=== PATIENT | male | born 1985 | race Two or more races ===

== ENCOUNTER 2024-07-31 10:19 | Emergency (ER) | payer MEDICAID, OTHER ==
[~2024-07-31] VITALS: Ht 157.5 cm; Wt 84.1 kg
[2024-07-31 10:25] VITALS: PULSE 97; RESP 28; O2SAT 100
[2024-07-31] MEDS: METOCLOPRAMIDE HCL 5MG/ml INJ 2ml VIAL IV ONE (10:50)
[2024-07-31] MEDS: MORPHINE SULFATE 4 MG/ML SYR/VIAL IV ONE (10:51)
--- NOTE | 2024-07-31 11:20 | DVH ---
CT ABDOMEN AND PELVIS WITHOUT CONTRAST CLINICAL HISTORY: ruq epigastric pain, etoh use TECHNIQUE: Multiple contiguous axial images of the abdomen and pelvis without intravenous contrast. The images were reformatted degenerate coronal and sagittal reconstructions. All CT scans at this medical facility are performed using dose modulation techniques as appropriate t o a performed exam including the following:Automated exposure control was utilized; adjustment of the MA and/or KV according to patient size; and use of iterative reconstruction technique. Radiation Dose Information: CT Dose: CTDI volume is 14.52 mGy. Dose-length product is 809.6 mGy*cm Comparison: None FINDINGS: Evaluation of the abdomen and pelvis is limited without intravenous contrast. There is a punctate 2 mm calculus in the upper pole of the left kidney. There is no right renal calcu sherly. There is no hydronephrosis. There is no evidence of a ureteral calculus or hydroureter. The liver, gallbladder, pancreas, adrenal glands, and spleen appear within normal limits. There is no gross evidence of abdominal lymphadenopathy. There is no free fluid or free air. The stomach grossly appears unremarkable. The small and large bowel loops demonstrate normal caliber . Moderate amount of stool in the colon. The abdominal aorta and IVC appear within normal limits. The bladder appears unremarkable for the degree of distention. Pelvic organ appears within normal desir its. There is no gross evidence of a pelvic mass. There is no free fluid collection. There is a smal l fat containing right inguinal hernia. Lung bases are clear. There is no acute osseous abnormality. IMPRESSION: 1. There is no acute process in the abdomen and pelvis. 2. Punctate 2 mm nonobstructive left upper pole renal calculus. 3. Moderate amount of stool in the colon. 4. Small fat containing right inguinal hernia. HS:Y
[2024-07-31] MEDS: KETOROLAC TROMETH 30 MG/ML 1ML VIAL IV ONE (11:43)
[2024-07-31] MEDS: SODIUM CHLORIDE 0.9% 1,000 ML IV ONE (11:51)
[2024-07-31 11:52] LABS: Alanine Aminotransferase 35 U/L (7-40); Albumin 4.6 g/dL (3.2-4.8); Anion Gap 9 (5-15); Aspartate Aminotransferase 21 U/L (13-40); BUN/Creatinine Ratio 8.7 (10.0-20.0); Carbon Dioxide 20 mmol/L (20-31); Potassium 4.3 mmol/L (3.5-5.1); Sodium 138 mmol/L (136-145); Total Protein 7.3 g/dL (5.7-8.2)
[2024-07-31 11:53] LABS: Alkaline Phosphatase 126 U/L (46-116); Bilirubin, Total 0.3 mg/dL (0.2-1.0); Blood Urea Nitrogen 8 mg/dL (9-23); Calcium 10.5 mg/dL (8.7-10.4); Chloride 109 mmol/L (98-107); Glucose 139 mg/dL (74-106); Lipase 90 U/L (12-53)
[2024-07-31 11:58] LABS: Basophils # (auto) 0.1 10 ^3/uL (0-0.2); Basophils % (auto) 0.5 % (0.0-2.0); Eosinophils # (auto) 0.3 10 ^3/uL (0-0.8); Eosinophils % (auto) 2.1 % (0.0-7.0); Hematocrit 48.2 % (41.0-53.0); Lymphocytes # (auto) 3.1 10 ^3/uL (0.4-5.4); Lymphocytes % (auto) 23.3 % (10.0-50.0); Mean Corpuscular Hemoglobin 30.5 pg (28.0-32.0); Mean Corpuscular Hgb Conc. 33.2 g/dL (32.0-36.0); Mean Corpuscular Volume 91.9 fL (80.0-100.0); Monocytes # (auto) 0.7 10 ^3/uL (0-1.3); Monocytes % (auto) 5.6 % (0.0-12.0); Neutrophils # (auto) 9.2 10 ^3/uL (1.6-8.6); Neutrophils % (auto) 68.5 % (37.0-80.0); Platelet Count (auto) 223 10^3/uL (140-450); Red Blood Cells 5.25 10^6/uL (4.5-5.90); White Blood Cell 13.4 10^3/uL (4.4-10.8)
[2024-07-31] MEDS ORDERED: IBU600T PO ×2 (12:27→12:28)
[2024-07-31] MEDS ORDERED: TAMS-35 PO (12:28)
--- NOTE | 2024-07-31 12:29 | ED.PDOC ---
GI ASSESSMENT HPI Comments right upper abdomen and flank pain Chief Complaint: Abdominal Pain Comments pt has a history of anxiety, liver disease, has been going through family str ess, but started to have right sided upper abdominal and flank pain yesterday. no injuries, no history of same. no hematuria Time Seen by MD: 10:36 Primary Care Provider: DR SAUD HARPER Reviewed Notes: Nurses Notes, Coding Manager Notes Allergies: Coded Allergies: NO KNOWN ALLERGIES (Unverified , 07/31/24) Information Source: Patient, Emergency Med Personnel Mode of Arrival: EMS Duration: Since onset Quality: Colicky Vomitus: None Severity: Moderate Recent: None Recent Hx of: None Pain Location: None Modifying Factors: Nothing Associated sign and symptoms: None Past Medical History Past Medical History (Other): liver disease, anxiety Surgical History: Denies all surgeries Family History Family History: Reviewed,noncontributory to illness, No family hx of Cancer, No family hx of DM, No family hx of Heart frances, No family hx of HTN, No family hx ofKidney frances, No family hx of Liver frances, No family hx of Lung frances, No family hx of Stroke Social History Smoker: Non-Smoker Alcohol: Heavy Drugs: Denies Drug Use Constitutional: reports: others (anxious); denies: chills, diaphoresis, fatigue, fever, malaise, sweats, weakness EENTM: denies: blurred vision, double vision, ear bleeding, ear discharge, ear drainage, ear pain, ear ringing, eye pain, eye redness, hearing loss, mouth pain, mouth swelling, nasal discharge, nose bleeding, nose congestion, nose pain, photophobia, tearing, throat pain, throat swelling, voice changes, others Respiratory: denies: cough, hemoptysis, orthopnea, SOB at rest, shortness of breath, SOB with excertion, stridor, wheezing, others Cardiovascular: denies: chest pain, dizzy spells, diaphoresis, Dyspnea on exertion, edema, irregular heart beat, left arm pain, lightheadedness, palpitations, PND, syncope, others Gastrointestinal: denies: abdomen distended, abdominal pain, blood streaked bowels, constipated, diarrhea, dysphagia, difficulty swallowing, hematemesis, melena, nausea, poor appetite, poor fluid intake, rectal bleeding, rectal pain, vomiting, others Genitourinary: denies: burning, dysuria, flank pain, frequency, hematuria, incontinence, penile discharge, penile sore, pain, testicle pain, testicle swelling, urgency, others Neurological: denies: dizziness, fainting, headache, left sided numbness, left sided weakness, numbness, paresthesia, pre-existing deficit, right sided numbness, right sided weakness, seizure, speech problems, tingling, tremors, wea kness, others Musculoskeletal: denies: back pain, gout, joint pain, joint swelling, muscle pain, muscle stiffness, neck pain, others Integumetry: denies: bruises, change in color, change in hair/nails, dryness, l aceration, lesions, lumps, rash, wounds, others Allergic/Immunocompromised: denies: Difficulty Healing, Frequent Infections, Hives, Itching, others Hematologic/Lymphatic: denies: anemia, blood clots, easy bleeding, easy bruising, swollen glands, others Endocrine: denies: excessive hunger, excessive sweating, excessive thirst, excessive urination, flushing, intolerance to cold, intolerance to heat, unexplained weight gain, unexplained weight loss, others Psychiatric: denies: anxiety, bipolar disorder, depression, hopeless, panic disorder, schizophrenia, sleepless, suicidal, others All Other Systems: Reviewed and Negative Physical Exam General Appearance: No Apparent Distress, Normal, Other (anxious) HEENT: Normal ENT Inspection, Pharynx Normal, TMs Normal Neck: Full Range of Motion, Non-Tender, Normal, Normal Inspection Respiratory: Chest Non-Tender, Lungs Clear, No Accessory Muscle Use, No Respiratory Distress, Normal Breath Sounds Cardiovascular: No Edema, No JVD, No Murmur, No Gallop, Normal Peripheral Pulses, Regular Rate/Rhythm Breast Exam: Deferred Gastrointestinal: No Organomegaly, Non Tender, No Pulsatile Mass, Normal Bowel Sounds, Soft Genitalia: Deferred Pelvic: Deferred Rectal: Deferred Extremities: No calf tenderness, Normal capillary refill, Normal inspection, Normal range of motion, Non-tender, No pedal edema Musculoskeletal : Apperance: Normal Neurologic: Alert, child & adolescent psychiatrist II-XII nml as Tested, No Motor Deficits, Normal Affect, Normal Mood, No Sensory Deficits Cerebellar Function: Normal Reflexes: Normal Skin: Dry, Normal Color, Warm Lymphatic: No Adenopathy Was a procedure done? Was a procedure done?: No GI differential Dx Differential Diagnosis: Appendicitis, Aortic dissection, Bowel Obstruction, Cholangitis, Cholecystitis, Constipation, Diverticular disease, Gastritis/PUD, Gastroenteritis, GI hemorrhage, Hernia, Hepatitis, Inflammatory BD, Ischemic Bowel, Pancreatitis, Urinary Obstruction, UTI, Urolithiasis, Dehydration, Diabetes/ DKA, Electrolyte Imbalance, Food Poisoning, Bacterial, Parasitic, Viral, Hypovolemia, Impaction, Malnutrition, Renal Failure, Ischemic Bowel, M ass, Anemia, Stress Ulcer, Kidney Stone X-Ray, Labs, Meds, VS Vital Signs Date Time Temp Pulse Resp B/P (MAP) Pulse Ox O2 Delivery O2 Flow Rate FiO2 07/31/24 12:19 95 18 119/85 (96) 97 07/31/24 12:18 95 18 119/85 07/31/24 10:51 97 28 149/98 07/31/24 10:27 98.0 11 28 155/95 (115) 99 07/31/24 10:25 97 28 100 Room Air* 0 21 07/31/24 10:25 97 28 149/98 (115) 100 Lab Test 07/31/24 11:22 Range/Units White Blood Count 13.4 H 4.4-10.8 10^3/uL Red Blood Count 5.25 4.5-5.90 10^6/uL Hemoglobin 16.0 13.5-17.5 g/dL Hematocrit 48.2 41.0-53.0 % Mean Corpuscular Volume 91.9 80.0-100.0 fL Mean Corpuscular Hemoglobin 30.5 28.0-32.0 pg Mean Corpuscular Hemoglobin Concent 33.2 32.0-36.0 g/dL Red Cell Distribution Width 14.0 11.8-14.3 % Platelet Count 223 140-450 10^3/uL Mean Platelet Volume 9.3 6.9-10.8 fL Neutrophils (%) (Auto) 68.5 37.0-80.0 % Lymphocytes (%) (Auto) 23.3 10.0-50.0 % Monocytes (%) (Auto) 5.6 0.0-12.0 % Eosinophils (%) (Auto) 2.1 0.0-7.0 % Basophils (%) (Auto) 0.5 0.0-2.0 % Neutrophils # (Auto) 9.2 H 1.6-8.6 10 ^3/uL Lymphocytes # (Auto) 3.1 0.4-5.4 10 ^3/uL Monocytes # (Auto) 0.7 0-1.3 10 ^3/uL Eosinophils # (Auto) 0.3 0-0.8 10 ^3/uL Basophils # (Auto) 0.1 0-0.2 10 ^3/uL Nucleated Red Blood Cells 0.0 % Sodium Level 138 136-145 mmol/L Potassium Level 4.3 3.5-5.1 mmol/L Chloride Level 109 H 98-107 mmol/L Carbon Dioxide Level 20 20-31 mmol/L Anion Gap 9 5-15 Blood Urea Nitrogen 8 L 9-23 mg/dL Creatinine 0.92 0.700-1.30 mg/dL Glomerular Filtration Rate Calc 109 >90 mL/min BUN/Creatinine Ratio 8.7 L 10.0-20.0 Serum Glucose 139 H 74-106 mg/dL Calcium Level 10.5 H 8.7-10.4 mg/dL Total Bilirubin 0.3 0.2-1.0 mg/dL Aspartate Amino Transferase (AST) 21 13-40 U/L Alanine Aminotransferase (ALT) 35 7-40 U/L Alkaline Phosphatase 126 H 46-116 U/L Total Protein 7.3 5.7-8.2 g/dL Albumin 4.6 3.2-4.8 g/dL Lipase 90 H 12-53 U/L Current Medications Medications (Trade) Dose Ordered Sig/Cristina Route Start Time Stop Time Status Last Admin Metoclopramide HCl (Reglan Injection) 10 mg ONCE ONCE IV 07/31/24 10:45 07/31/24 10:46 DC 07/31/24 10:50 Morphine Sulfate 4 mg ONCE ONCE IV 07/31/24 10:45 07/31/24 10:46 DC 07/31/24 10:51 Ketorolac Tromethamine (Toradol Injection) 30 mg ONCE ONCE IV 07/31/24 11:45 07/31/24 11:46 DC 07/31/24 11:43 Sodium Chloride 1,000 ml @ 1,000 mls/hr Q1H ONCE IV 07/31/24 11:45 07/31/24 12:44 07/31/24 11:51 Time of 1ST Reevaluation: 12:25 Reevaluation 1ST: Improved Patient Education/Counseling: Diagnosis, Treatment, Prognosis, Need For Follow Up Family Education/Counseling: No Family Present Additional Information pt does not have sbo, aortic disorders, perforation of bowel. he is passing a small kidney stone and is pain free now after treatment. he is stable for discharge Departure 1 Departure Time of Disposition: 12:26 Impression: Primary Impression: Renal colic on right side Additional Impression: Urethral stone Disposition: HOME / SELF CARE / HOMELESS Condition: Good e-Prescriptions Ibuprofen Micronized (MOTRIN TABLET) 600 Mg Tb 600 MG PO TID PRN, #40 TAB *Black box warning-NSAIDS can increase risk of DE & hypertension, GI irritation, ulceration, bleed, perferation. Do not use post cardiac surgery. Use short duration/lowest effective dose. Prov: DESIREE BULLARD MD 07/31/24 Tamsulosin Hcl (Flomax) 0.4 Mg Cap 1 CAP PO DAILY for 10 Days, #10 CAP 11 Refills Prov: DESIREE BULLARD MD 07/31/24 Discharged With: Self Critical Care Note Critical Care Time?: Yes (55 min-critical care time only) Critical care comment: due to concerns for patient's condition deterioration, the care required my highest attention and readiness to intervene. i spoke to the family, patient, reviewed any records, ordered the appropriate tests and treatments, reviewed the results, response and communicated with medical personnel, formulated a plan of care. critical care time does not include any procedures Stability Stability form required: No DESIREE BULLARD MD Jul 31, 2024 12:29
[2024-07-31 13:39] VITALS: BP 142/88; PULSE 91; RESP 17; TEMP 98.7; O2SAT 99
== END 2024-07-31 13:42 | disposition home or self-care (01) ==
LOC: EDBD 10:19 → ER 10:19
DX: N20.0 Calculus of kidney (principal); N21.1 Calculus in urethra; Z98.890 Other specified postprocedural states
CPT/HCPCS: 36415; 74176; 80053; 83690; 85025; 96361; 96374; 96375; 99285; J1885; J2270; J2765; J7030

== ENCOUNTER 2024-08-17 20:00 | Emergency (ER) | payer MEDICAID ==
[~2024-08-17] VITALS: Ht 160 cm; Wt 84.1 kg
[~2024-08-17 20:00] MED LIST: IBU600T PO; TAMS-35 PO
[2024-08-17 20:21] VITALS: BP 150/101; PULSE 87; RESP 22; O2SAT 99
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
--- NOTE | 2024-08-17 21:06 | DVH ---
CLINICAL HISTORY: loc TECHNIQUE: Helical imaging carried out from skull base to vertex without intravenous contrast. This e xam was performed according to our departmental dose optimization program. Up-to-date CT equipment an d radiation dose reduction techniques are utilized as appropriate. CTDIVol: [CTDIvol] mGy DLP: 2412.28 mGy-cm WID: COMPARISON: None FINDINGS: The ventricles and subarachnoid spaces are normal in size and configuration. There is no midline sobia ft or mass effect. The sykes white matter interfaces are maintained. The basal cisterns are patent. Th ere is no evidence of acute intracranial hemorrhage or extra-axial fluid collection. There is intermediate density in the intraconal and extraconal left orbit. There is a mildly displace d left orbital floor fracture. There is a comminuted fracture of the left lamina papyracea. There is hemo sinus layering in the left maxillary sinus and in the left ethmoid air cells. There is a mild le ft periorbital soft tissue contusion. IMPRESSION: 1. No acute intracranial abnormality. 2. Left intraconal and extraconal orbital blood products 3. Mildly displaced fracture of the left orbital floor and comminuted fracture of the left lamina pap yracea. 4. Small Left periorbital soft tissue contusion.
--- NOTE | 2024-08-17 21:14 | DVH ---
EXAM: CT MAXILLOFACIAL WITHOUT CLINICAL HISTORY: PT STATES JAW PAIN TECHNIQUE: Multiple contiguous axial images were obtained of the facial bones without intravenous con trast. Sagittal and coronal reformations were obtained. This exam was performed according to our depa rtmental dose optimization program. Up-to-date CT equipment and radiation dose reduction techniques a re utilized as appropriate. Comparison: None FINDINGS: There is a comminuted fracture of the left lamina papyracea. There is a mildly displaced fracture of the left orbital floor. The globes are symmetric. There is intermediate density soft tissue within t he intraconal and extraconal left orbit. Mild paranasal sinus mucosal thickening. There is hemo sinus in the left ethmoid air cells and layering hemo sinus in the left maxillary sinus . There is small l eft periorbital soft tissue contusion. The temporomandibular joints are maintained. IMPRESSION: 1. Comminuted left lamina papyracea fracture and mildly displaced fracture of the left orbital floor. 2. Blood products/orbital hemorrhage in the extraconal and intraconal left orbit. 3. Small left periorbital soft tissue contusion.
[2024-08-17] MEDS ORDERED: IBUP-1455 PO (22:59)
[2024-08-18] MEDS: HYDROcodone-ACET 10/325MG TAB PO ONE (00:12)
== END 2024-08-18 00:14 | disposition home or self-care (01) ==
LOC: ER 20:00
DX: S02.32XA Fracture of orbital floor, left side, initial encounter for closed fracture (principal); S01.112A Laceration without foreign body of left eyelid and periocular area, initial encounter; Y04.2XXA Assault by strike against or bumped into by another person, initial encounter; Y93.89 Activity, other specified; Y92.89 Other specified places as the place of occurrence of the external cause; Y99.8 Other external cause status
CPT/HCPCS: 12011; 70450; 70486